=== PATIENT | male | born 1955 | race American Indian/Alaskan Native ===

== ENCOUNTER 2017-06-03 10:25 | Outpatient (CLI) | payer MEDICAID ==
--- NOTE | 2017-06-03 11:48 | XRay Report ---
LUMBOSACRAL SPINE, 3 VIEWS: History: Low back pain Findings: Limited exam with poor penetration secondary to body habitus. Severe levoscoliosis is suggested on the AP image. There is straightening of the normal lordosis on the lateral image. Moderate to severe degenerative disc disease and facet arthropathy are identified at all levels. No obvious acute injury or bone lesion. Impression: Levoscoliosis with advanced degenerative changes. No acute process noted.
--- NOTE | 2017-06-03 11:49 | XRay Report ---
LEFT KNEE, 3 VIEWS History: Left knee pain Findings: No comparison. There is severe medial joint space narrowing. Mild retropatellar spurring. Moderate tibial spine spurring. No evidence for fracture, bone lesion or large osteochondral defect. Small joint effusion is noted. Impression: Moderate to severe osteoarthritic changes as described. Small knee effusion.
== END 2017-06-03 10:26 | disposition home or self-care (01) ==
LOC: XRAY 10:25
PROVIDERS: ATTEND Orthopaedic Surgery
DX: M17.12 Unilateral primary osteoarthritis, left knee (principal); M47.897 Other spondylosis, lumbosacral region; M41.87 Other forms of scoliosis, lumbosacral region
CPT/HCPCS: 72100

== ENCOUNTER 2017-08-13 09:26 | Outpatient (CLI) | payer MEDICAID ==
--- NOTE | 2017-08-13 10:11 | XRay Report ---
Left knee 3 views: History: Pain in left knee. Findings: These total knee replacement noted. The femoral and the tibial complement is anatomic alignment. No dislocation or subluxation or evidence of fracture. Impression: Stable total knee.
== END 2017-08-13 09:27 | disposition home or self-care (01) ==
LOC: XRAY 09:26
PROVIDERS: ATTEND Orthopaedic Surgery
DX: M25.562 Pain in left knee (principal); Z96.652 Presence of left artificial knee joint